=== PATIENT | male | born 1980 | race Caucasian/White ===

== ENCOUNTER 2016-04-16 09:41 | Outpatient (CLI) ==
--- NOTE | 2016-04-16 10:10 | DI ---
EXAM: Two views of the left humerus. History: Left arm muscle strain. Findings: No acute fracture or dislocation. No abnormal calcifications or radiopaque foreign kemal s. Joint spaces are preserved. Impression: No acute osseous abnormality.
--- NOTE | 2016-04-16 10:11 | DI ---
EXAM: Three views of the left elbow. History: Left arm muscle strain and trauma. Findings: No acute fracture or dislocation. No abnormal calcifications or radiopaque foreign kemal s. Joint spaces are preserved. Impression: No acute osseous abnormality.
== END 2016-04-16 09:42 | disposition home or self-care (01) ==
LOC: RAD 09:41
PROVIDERS: ATTEND Nurse Practitioner Family
DX: S46.912A Strain of unspecified muscle, fascia and tendon at shoulder and upper arm level, left arm, initial encounter (principal); M62.838 Other muscle spasm

== ENCOUNTER 2016-11-30 20:04 | Emergency (ER) ==
[2016-11-30] MEDS ORDERED: EYE-STREAM OP STA (20:09)
[2016-11-30] MEDS ORDERED: FLUORETS OP STA (20:09)
[2016-11-30] MEDS ORDERED: TETRACAINE 0.5% UNIT-DOSE OP STA (20:09)
[2016-11-30 20:10] VITALS: BP 136/90; TEMP 98.7; BMI 32.8
[2016-11-30] MEDS ORDERED: GENTAK OPTH SOL OP STA (20:10)
--- NOTE | 2016-11-30 20:32 | ED.PDOC ---
General ED Provider: Dr. TYSHAWN SYLVESTER Chief Complaint: Eye Problem Stated Complaint: Pateint was getting something out of a tree the felt like something got into the right eye. He was unable to get it out then came to the ER. Time Seen by Physician: 20:00 Mode of Arrival: Walk-In Information Source: Patient Exam Limitations: No limitations [facility] and Triage Documentation Reviewed and Agree: Yes EENT Complaint Exam - Eye Complaint/Exam Onset/Duration: 1 hour Symptoms Are: Still present Timing: Constant Initial Severity: Severe Current Severity: Severe Location: Right Character: Reports: Foreign body sensation Aggravating: Reports: Blinking Alleviating: Reports: None Associated Signs and Symptoms: Reports: Photophobia. Denies: Vision impairment Eye Surgical History: Reports: None Penetrating Injury Risk Factors: None Globe Rupture Risk Factors: None Acute Glaucoma Risk Factors: None Optic Artery Occlusion Risk Factors: None Visual Field: Normal Extraocular Movement: Normal Orbit Findings: Normal Globe Findings: Intact Lid Findings: Foreign Body Conjunctival Findings: Red Corneal Findings: Clear Fluorescein Uptake: No Eye Picture: 1 - 1mm black smooth surfice foreign body Differential Diagnoses: Conjunctivitis, Foreign Body Review of Systems - Review Of Systems Constitutional: Reports: No symptoms Eyes: Reports: Foreign body sensation. Denies: Vision change Ears, Nose, Mouth, Throat: Reports: No symptoms Respiratory: Reports: No symptoms Cardiac: Reports: No symptoms GI: Reports: No symptoms : Reports: No symptoms Musculoskeletal: Reports: No symptoms Skin: Reports: No symptoms Neurological: Reports: Anxiety Endocrine: Reports: No symptoms Hematologic/Lymphatic: Reports: No symptoms All Other Systems: Reviewed and Negative Past Medical History - Past Medical History Previously Healthy: Yes Endocrine: Reports: None Cardiovascular: Reports: None Respiratory: Reports: None Hematological: Reports: None Gastrointestinal: Reports: None Genitourinary: Reports: None Neuro/Psych: Reports: Seizure Musculoskeletal: Reports: None Cancer: Reports: None - Surgical History General Surgical History: Reports: None - Family History Family History: Reports: None - Social History Smoking Status: Never smoker Hx Substance Use: No Alcohol Screening: None - Immunizations Tetanus Shot up to Date: Yes Physical Exam - Physical Exam Appearance: Well-appearing, No pain distress, Well-nourished Eyes: Conjunctiva inflammed ENT: Ears normal, Nose normal, Oropharynx normal Neck: Supple Respiratory: Airway patent, Breath sounds clear, Breath sounds equal, Respirations nonlabored Cardiovascular: RRR, Pulses normal, No rub, No murmur GI/: Soft, Nontender, No masses, Bowel sounds normal, No Organomegaly Musculoskeletal: Normal strength, ROM intact, No edema, No calf tenderness Skin: Warm, Dry, Normal color Neurological: Sensation intact, Motor intact, Alert, Oriented Psychiatric: Anxious Critical Care Note - Critical Care Note Total Time (mins): 0 Course - Course Orders, Labs, Meds: Orders Category Date Time Status Balanced Salt Solution [Eye-Stream] MEDS 11/30/16 20:09 Discontinued 1 bottle OP ONCE STA Fluorescein Sodium [Fluorets] MEDS 11/30/16 20:09 Discontinued 1 strip OP ONCE STA Gentamicin Sulfate Opth [Gentak Opth Kristina] MEDS 11/30/16 20:10 Discontinued 1 drop OP ONCE STA Tetracaine HCl/Pf [Tetracaine 0.5% Unit-Dose] MEDS 11/30/16 20:09 Discontinued 2 drop OP ONCE STA Medications Discontinued Medications Generic Name Dose Route Start Last Admin Trade Name Freq PRN Reason Stop Dose Admin Eye Irrigation Solution 1 bottle 11/30/16 20:09 11/30/16 20:15 Eye-Stream OP 11/30/16 20:10 1 bottle ONCE STA Administration Fluorescein Sodium 1 strip 11/30/16 20:09 11/30/16 20:19 Fluorets OP 11/30/16 20:10 1 strip ONCE STA Administration Gentamicin Sulfate 1 drop 11/30/16 20:10 11/30/16 20:20 Gentak Opth Kristina OP 11/30/16 20:11 1 drop ONCE STA Administration Tetracaine HCl 2 drop 11/30/16 20:09 11/30/16 20:14 Tetracaine 0.5% Unit-Dose OP 11/30/16 20:10 2 drop ONCE STA Administration Vital Signs: Temp Pulse Resp BP Pulse Ox 11/30/16 20:05 98.7 F 72 20 136/90 97 Departure - Departure Time of Disposition: 20:37 Disposition: HOME SELF-CARE Discharge Problem: Foreign body in eyeball, right Instructions: Eye Foreign Body (ED) Condition: Fair Pt referred to PMD for follow-up: Yes Additional Instructions: Use eye drops three times a day on the right eye for 10 days Always use eye protection while working on bushes. Allergies/Adverse Reactions: Allergies No Known Allergies Allergy (Verified 11/30/16 20:09) Home Medications: Ambulatory Orders Multivitamin 1 cap PO DAILY 11/30/16 Disposition Discussed With: Patient, Family
== END 2016-11-30 20:47 | disposition home or self-care (01) ==
LOC: ED 20:04
DX: T15.91XA Foreign body on external eye, part unspecified, right eye, initial encounter (principal)
CPT/HCPCS: 99283

== ENCOUNTER 2017-03-27 12:34 | Outpatient (CLI) ==
[2017-03-27 13:01] LABS: FLU INTERNAL QC INTERNAL QC VALID; MOLECULAR FLU A NEGATIVE BY NAAT (NEGATIVE); MOLECULAR FLU B NEGATIVE BY NAAT (NEGATIVE)
== END 2017-03-27 12:35 | disposition home or self-care (01) ==
LOC: LAB 12:34
PROVIDERS: ATTEND Nurse Practitioner Family
DX: R68.89 Other general symptoms and signs (principal)
CPT/HCPCS: 87502

== ENCOUNTER 2017-04-18 11:16 | Outpatient (CLI) | END 2017-04-18 11:17 | disposition home or self-care (01) | LOC: LAB 11:16 | PROVIDERS: ATTEND Nurse Practitioner Family | DX: R53.83 Other fatigue (principal) | CPT/HCPCS: 36415; 80053; 80061; 82306; 84402; 84439; 84443; 85025 ==

== ENCOUNTER 2017-04-23 15:41 | Outpatient (CLI) | END 2017-04-23 15:42 | disposition home or self-care (01) | LOC: LAB 15:41 | PROVIDERS: ATTEND Nurse Practitioner Family | DX: R73.09 Other abnormal glucose (principal); E55.9 Vitamin D deficiency, unspecified; E78.5 Hyperlipidemia, unspecified | CPT/HCPCS: 36415; 83037 ==

== ENCOUNTER 2017-07-18 10:53 | Outpatient (CLI) | END 2017-07-18 10:54 | disposition home or self-care (01) | LOC: LAB 10:53 → RHC-LAB 10:54 | PROVIDERS: ATTEND Nurse Practitioner Family | DX: R73.09 Other abnormal glucose (principal); E78.5 Hyperlipidemia, unspecified; E55.9 Vitamin D deficiency, unspecified | CPT/HCPCS: 36415; 80053; 80061; 82306; 83037; 85025 ==

== ENCOUNTER 2017-07-30 08:22 | Outpatient (CLI) ==
--- NOTE | 2017-07-30 09:03 | US ---
EXAM: Right upper quadrant abdominal ultrasound. History: Generalized abdominal pain. Technique: Multiple sonographic images through the abdomen were obtained. Color duplex Doppler was used to interrogate vascular flow. Findings: The pancreas was not well visualized due to obscuration by bowel gas. No abdominal ascites. The frank er is enlarged measuring 17 cm and the liver is diffusely echogenic. No focal liver lesions identifi ed sonographically. There is antegrade flow within the main portal vein. Limited visualization of t he right kidney demonstrates no evidence for hydronephrosis. No shadowing gallstones. Gallbladder w all is not thickened. Common bile duct measures 0.4 cm in caliber. Impression: 1. No acute sonographic findings. 2. Enlarged fatty liver
== END 2017-07-30 08:23 | disposition home or self-care (01) ==
LOC: RAD 08:22
PROVIDERS: ATTEND Nurse Practitioner Family
DX: R10.84 Generalized abdominal pain (principal); E78.5 Hyperlipidemia, unspecified; R74.8 Abnormal levels of other serum enzymes

== ENCOUNTER 2017-08-04 09:06 | Outpatient (CLI) ==
--- NOTE | 2017-08-04 11:34 | NM ---
EXAM: Hepatobiliary imaging HISTORY: Generalized abdominal pain COMPARISON: Right upper quadrant ultrasound on 07/30/2017 showed enlarged fatty liver. TECHNIQUE: Patient was injected 4.7 mCi of technetium 99m mebrofenin intravenously. Multiple anterio r scintigraphic images of the right upper quadrant region of the abdomen were obtained up to 1 hour i nterval. Patient was infused 2 mcg of cholecystokinin intravenously and gallbladder ejection fractio n was calculated. FINDINGS: There is normal visualization of liver, gallbladder, bile duct and small bowel loops. Gall bladder ejection fraction is 94%. IMPRESSION: Normal study
== END 2017-08-04 09:07 | disposition home or self-care (01) ==
LOC: RAD 09:06
PROVIDERS: ATTEND Nurse Practitioner Family
DX: R10.84 Generalized abdominal pain (principal); E78.5 Hyperlipidemia, unspecified; R74.8 Abnormal levels of other serum enzymes

== ENCOUNTER 2017-08-06 09:10 | Outpatient (CLI) ==
--- NOTE | 2017-08-06 10:41 | DI ---
EXAM: CHEST FRONTAL AND LATERAL VIEWS HISTORY: Cough. COMPARISON: 12/27/2013 FINDINGS: Heart size and mediastinal contour remain within normal limits. No acute infiltrates. Normal vascularity with no pleural fluid or pneumothorax. The bony thorax has no acute finding. IMPRESSION: No acute process.
== END 2017-08-06 09:11 | disposition home or self-care (01) ==
LOC: LAB 09:10
PROVIDERS: ATTEND Nurse Practitioner Family
DX: R16.0 Hepatomegaly, not elsewhere classified (principal); E78.5 Hyperlipidemia, unspecified; R10.84 Generalized abdominal pain; R05 Cough
CPT/HCPCS: 36415; 80074; 93005; 93010

== ENCOUNTER 2017-08-08 12:00 | Outpatient (CLI) | END 2017-08-08 12:01 | disposition home or self-care (01) | LOC: FCC-LAB 12:00 | PROVIDERS: ATTEND Nurse Practitioner Family | DX: R00.1 Bradycardia, unspecified (principal); R10.84 Generalized abdominal pain; R74.8 Abnormal levels of other serum enzymes; E78.5 Hyperlipidemia, unspecified; E55.9 Vitamin D deficiency, unspecified; R79.89 Other specified abnormal findings of blood chemistry | CPT/HCPCS: 36415; 82306; 84402 ==

== ENCOUNTER 2017-08-09 21:40 | Emergency (ER) ==
[2017-08-09 21:43] VITALS: BP 145/87; TEMP 98.3; BMI 35.5
--- NOTE | 2017-08-09 22:01 | ED.PDOC ---
General ED Provider: Dr. EILEEN BRYANT Chief Complaint: Chest Pain Stated Complaint: Came for the left side chest pain, radiating to left arm, pain is better now.. also having some black stools Time Seen by Physician: 21:59 Mode of Arrival: Walk-In Information Source: Patient Primary Care Provider: JAMMIE LUGO Nursing and Triage Documentation Reviewed and Agree: Yes Reviewed sepsis parameters & appropriate labs ordered?: No System Inflammatory Response Syndrome: Not Applicable Sepsis Protocol: For patient's 13 years and over: Temp is 96.8 and below OR 101 and greater Pulse >90 BPM Resp >20/minute Acutely Altered Mental Status Are patient's symptoms suggestive of a new infection, such as: -Pneumonia -Skin, Soft Tissue -Endocarditis -UTI -Bone, Joint Infection -Implantable Device -Acute Abdominal Infection -Wound Infection -Meningitis -Blood Stream Catheter Infection -Unknown Cardiovascular Complaint Exam - Chest Pain Complaint/Exam Onset: Sudden Symptoms Are: Resolved Timing: Constant Initial Severity: Moderate Current Severity: None Location: Reports: Left lateral Pain Radiates: Reports: Left arm Character: Reports: Aching, Tightness Aggravating: Reports: None Alleviating: Reports: None Related Surgical History: Reports: None History of Healthcare-Acquired Pneumonia: Reports: No AMI/ACS Risk Factors: Reports: None TAD Risk Factors: Reports: None Pulmonary Embolism Risk Factors: Reports: None Prior Care for this Complaint: No Recent Stress Test: No Recent Echo/LV Function: No JVD Present: No Subcutaneous Emphysema Present: No Diminshed Breath Sounds: No Reproducible Chest Wall Pain: No Bilateral Pulses Present: No Unequal Pulses Noted: No If Risk Factors for AMI/ACS Consider: EKG, Cardiac Enzymes, Serial Studies Differential Diagnoses: ACS, Chest Wall Pain Review of Systems - Review Of Systems Constitutional: Reports: No symptoms Eyes: Reports: No symptoms Ears, Nose, Mouth, Throat: Reports: No symptoms Respiratory: Reports: No symptoms Cardiac: Reports: Chest pain GI: Reports: No symptoms : Reports: No symptoms Musculoskeletal: Reports: No symptoms Skin: Reports: No symptoms Neurological: Reports: No symptoms Endocrine: Reports: No symptoms Hematologic/Lymphatic: Reports: No symptoms All Other Systems: Reviewed and Negative Past Medical History - Past Medical History Previously Healthy: Yes Endocrine: Reports: None Cardiovascular: Reports: None Respiratory: Reports: None Hematological: Reports: None Gastrointestinal: Reports: GERD Genitourinary: Reports: None Neuro/Psych: Reports: Seizure Musculoskeletal: Reports: None Cancer: Reports: None - Surgical History General Surgical History: Reports: None - Family History Family History: Reports: None - Social History Smoking Status: Never smoker Hx Substance Use: No Alcohol Screening: Occasionally - Immunizations Tetanus Shot up to Date: Yes Physical Exam - Physical Exam Appearance: Well-appearing, No pain distress, Well-nourished Eyes: VINAY, EOMI, Conjunctiva clear ENT: Ears normal, Nose normal, Oropharynx normal Respiratory: Airway patent, Breath sounds clear, Breath sounds equal, Respirations nonlabored Cardiovascular: RRR, Pulses normal, No rub, No murmur GI/: Soft, Nontender, No masses, Bowel sounds normal, No Organomegaly Musculoskeletal: Normal strength, ROM intact, No edema, No calf tenderness Skin: Warm, Dry, Normal color Neurological: Sensation intact, Motor intact, Reflexes intact, Cranial nerves intact, Alert, Oriented Psychiatric: Affect appropriate, Mood appropriate Interpretation - Radiology Interpretation Radiology Interpretation By: ED Physician Radiology Results: Negative Exam Interpreted: CXR - EKG Interpretation Time of EKG #1: 22:00 Rate: Zbigniew Rhythm: Sinus Re-Evaluation - Re-Evaluation Time of Re-Evaluation: 23:26 Status: Improved Critical Care Note - Critical Care Note Total Time (mins): 30 Course - Course Hematology/Chemistry: 08/09/17 22:12 08/09/17 22:12 Orders, Labs, Meds: Lab Review 08/09/17 08/09/17 22:12 22:12 WBC 8.77 RBC 3.92 L Hgb 12.8 L Hct 36.3 L MCV 92.6 MCH 32.7 H MCHC 35.3 RDW Coeff of Chitra 12.0 Plt Count 219 Immature Gran % (Auto) 0.3 Neut % (Auto) 38.1 Lymph % (Auto) 47.0 [place] % (Auto) 10.5 H Eos % (Auto) 3.8 Baso % (Auto) 0.3 Immature Gran # (Auto) 0.0 Neut # (Auto) 3.3 Lymph # (Auto) 4.1 H [place] # (Auto) 0.9 Eos # (Auto) 0.3 Baso # (Auto) 0.0 Sodium 140 Potassium 3.8 Chloride 105 Carbon Dioxide 23 Anion Gap 15.8 BUN 14 Creatinine 1.19 H Estimated GFR (MDRD) 70.00 BUN/Creatinine Ratio 11.76 Glucose 107 H Calcium 9.4 Total Bilirubin 0.4 AST 38 H ALT 70 Alkaline Phosphatase 45 L Total Creatine Kinase 431 CK-MB (CK-2) 2.5 CK-MB (CK-2) % 0.25177 Troponin I < 0.0100 Total Protein 7.3 Albumin 3.9 Globulin 3.4 Albumin/Globulin Ratio 1.15 Orders Category Date Time Status EKG-(ED ONLY) Stat CARDIO 08/09/17 21:58 Completed CBC W/ AUTO DIFF Stat LAB 08/09/17 22:12 Completed COMPREHENSIVE METABOLIC PANEL Stat LAB 08/09/17 22:12 Completed CREATINE KINASE Stat LAB 08/09/17 22:12 Completed TROPONIN I Stat LAB 08/09/17 22:12 Completed Pantoprazole Sodium [Protonix] MEDS 08/09/17 23:21 Stat 40 mg PO ONCE STA Sucralfate Susp [Carafate] MEDS 08/09/17 23:21 Stat 1 gm PO ONCE STA CHEST, 2 VIEWS PA & LAT Stat RADS 08/09/17 21:58 Taken Vital Signs: Temp Pulse Resp BP Pulse Ox 08/09/17 21:40 98.3 F 61 20 145/87 H 95 NATI Risk Score Age >/= 65: No >/= 3 CAD Risk Factors: No Known CAD (Stenosis >/= 50%): No ASA Use in Past 7 Days: No Severe Angina (>/= 2 episodes in 24 hours): No EKG ST Changes >/= 0.5mm: No Postive Cardiac Marker: No NATI Total Score: 0 NATI Risk Score: Risk Score Odds of by 30D 0 0.1 (0.1-0.2) 1 0.3 (0.2-0.3) 2 0.4 (0.3-0.5) 3 0.7 (0.6-0.9) 4 1.2 (1.0-1.5) 5 2.2 (1.9-2.6) 6 3.0 (2.5-3.6) 7 4.8 (3.8-6.1) Departure - Departure Time of Disposition: 23:31 Disposition: HOME SELF-CARE Discharge Problem: Chest pain, PUD (peptic ulcer disease) Instructions: Chest Pain (ED) Condition: Stable Pt referred to PMD for follow-up: Yes IPMP verified?: No Additional Instructions: Dont want to be admitted, has stress test scheduled by Jammie as out patient. No spicy food, no fried food. f/u in [facility] 3-4 days Prescriptions: Ranitidine HCl [Zantac] 150 mg PO BIDAC #20 tablet Sucralfate Susp [Carafate] 1 gm PO ACHS #1 bottle Allergies/Adverse Reactions: Allergies No Known Allergies Allergy (Verified 08/09/17 21:44) Home Medications: Ambulatory Orders Ranitidine HCl [Zantac] 150 mg PO BIDAC #20 tablet 08/09/17 Sucralfate Susp [Carafate] 1 gm PO ACHS #1 bottle 08/09/17 Disposition Discussed With: Patient
[2017-08-09] MEDS ORDERED: PROTONIX PO STA (23:21)
[2017-08-09] MEDS ORDERED: CARAFATE PO STA (23:21)
--- NOTE | 2017-08-10 06:28 | DI ---
EXAM: PA and lateral views of the chest HISTORY: Chest. COMPARISON: Chest x-ray 08/06/2017 FINDINGS: The cardiomediastinal silhouette is normal. There is no pneumothorax or pleural effusion. There is no consolidation, nodule or mass. The osseous structures are unremarkable. IMPRESSION: No acute cardiopulmonary process
== END 2017-08-09 23:50 | disposition home or self-care (01) ==
LOC: ED 21:40
DX: R07.9 Chest pain, unspecified (principal); K27.9 Peptic ulcer, site unspecified, unspecified as acute or chronic, without hemorrhage or perforation
CPT/HCPCS: 36415; 80053; 82550; 82553; 84484; 85025; 93005; 93010; 99283

== ENCOUNTER 2017-08-28 06:42 | Outpatient (CLI) ==
--- NOTE | 2017-09-01 07:50 | STRESSECHO ---
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[employer] Reason for Exam: SINUS BRADYCARDIA, HX MURMUR Smoking History: NON SMOKER Height: 70" Weight: 255 LBS Current Medications: SIMVASTATIN, SUCRALFATE, RANITIDINE Resting EKG: SINUS RHYTHM/ BRADYCARDIA Target Heart Rate: 157/185 S-T SEGMENT STAGE MPH/GRADE HEART RATE BPM BLOOD PRESSURE MMHG RHYTHM +/- ELEVATION DEPRESSION SYMPTOMS,COMMENTS AT REST 55 112/86 SR X NONE 1 1.7/10% 112 136/66 SR X NONE 2 2.5/12% 136 140/66 SR X NONE 3 3.4/14% 4 4.2/16% 5 5.0/18% Immediately After 155 160/60 SR X SHORT OF BREATH Minutes Post Exercise 5:00 80 132/78 SR X NO SYMPTOMS Minutes Post Exercise DURATION OF EXERCISE: 7:01 MAXIMUM HEART RATE REACHED: 155 REASON FOR TERMINATION: SHORT OF BREATH 99% OXYGEN SATURATION WITH EXERCISE ON ROOM AIR METS: 10.1 INTERPRETATION: 1. NO EVIDENCE OF ISCHEMIA BY ST-T WAVE 2. NO CHEST PAIN OR CHEST DISCOMFORT 3. BLOOD PRESSURE RESPONSE: NORMAL 4. NO ARRHYTHMIAS NORMAL LEFT VENTRICULAR CONTRACTILITY--RESTING AND POST EXERCISE MTDD
--- NOTE | 2017-09-01 07:54 | ECHOSTRESS ---
Date of Exam: 08/28/17 Ordering Physician: JAMMIE LUGO APRN Reason for Echo: SINUS BRADYCARDIA, MURMUR, STRESS TEST--NO ISCHEMIA M-Mode Normal Adult Results LV Dimensions Normal Adult Results AoV Opening excursions >1.6 LVEDD-base- 3.5-5.8 Ao root dimensions 2.0-3.7 LVESD-base- 3.1-4.6 L. Atrium dimensions 1.9-3.8 Post. Wall thickness 0.8-1.1 IV septum (thickness) 0.7-1.2 Post. Wall excursion 0.72-1.3 Septal motion Systolic motion R. Ventricular cavity 1.5-2.0 LVEF 60% Paradoxical septal wall motion 2-D: NORMAL LEFT VENTRICULAR CONTRACTILITY--RESTING AND POST EXERCISE M-MODE: MV: AV: TV: PV: CHAMBER SIZE: WALL MOTION: NORMAL LEFT VENTRICULAR CONTRACTILITY--RESTING AND POST EXERCISE PERICARDIUM: INTERPRETATION: 1. NORMAL LEFT VENTRICULAR CONTRACTILITY--RESTING AND POST EXERCISE MTDD
== END 2017-08-28 06:43 | disposition home or self-care (01) ==
LOC: CAR 06:42
PROVIDERS: ATTEND Nurse Practitioner Family
DX: R00.1 Bradycardia, unspecified (principal)

== ENCOUNTER 2018-07-10 01:03 | Emergency (ER) ==
[2018-07-10 01:11] VITALS: TEMP 97.7; BMI 35.9
[2018-07-10 01:14] VITALS: BP 146/94
--- NOTE | 2018-07-10 01:18 | ED.PDOC ---
General ED Provider: Dr. UCHE STACY-ER Chief Complaint: Tooth Problem Stated Complaint: my tooth hurts Time Seen by Physician: 01:05 Mode of Arrival: Walk-In Information Source: Patient Exam Limitations: No limitations Primary Care Provider: DANIEL CASTREJON Nursing and Triage Documentation Reviewed and Agree: Yes Does patient meet sepsis criteria?: No System Inflammatory Response Syndrome: Not Applicable Sepsis Protocol: For patient's 13 years and over: Temp is 96.8 and below OR 101 and greater Pulse >90 BPM Resp >20/minute Acutely Altered Mental Status Are patient's symptoms suggestive of a new infection, such as: -Pneumonia -Skin, Soft Tissue -Endocarditis -UTI -Bone, Joint Infection -Implantable Device -Acute Abdominal Infection -Wound Infection -Meningitis -Blood Stream Catheter Infection -Unknown EENT Complaint Exam - Dental/Oral Complaint/Exam Mechanism of Injury: No known trauma Onset/Duration: 24 hrs Symptoms Are: Still present Initial Severity: Mild Current Severity: Mild Location: right lower premolar Character: Reports: Dull, Aching, Throbbing Aggravating: Reports: None Alleviating: Reports: None Associated Signs and Symptoms: Denies: Swelling, Discharge, Fever, Foul odor, Foul taste in mouth Related History: Reports: Similar episode Cardiac Risk Factors: Reports: None Dental/Oral Surgical History: Reports: None Tooth Findings: Present: Percussion tenderness, Gross decay Cervical Lymphadenopathy Present: No Facial Swelling Present: No Bleeding Present: No Septal Hematoma: No Foreign Body Present: No Dysphagia Present: No Drooling Present: No Asymmetrical Tonsillar Swelling Present: No Uvula Midline: Yes Isabelle-tonsillar Fluctuence: No Trismus Present: No Differential Diagnoses: Dental Caries Review of Systems - Review Of Systems Constitutional: Reports: No symptoms Eyes: Reports: No symptoms Ears, Nose, Mouth, Throat: Reports: Mouth pain Respiratory: Reports: No symptoms Cardiac: Reports: No symptoms GI: Reports: No symptoms : Reports: No symptoms Musculoskeletal: Reports: No symptoms Skin: Reports: No symptoms Neurological: Reports: No symptoms Endocrine: Reports: No symptoms Hematologic/Lymphatic: Reports: No symptoms All Other Systems: Reviewed and Negative Past Medical History - Past Medical History Previously Healthy: Yes Endocrine: Reports: None Cardiovascular: Reports: None Respiratory: Reports: None Hematological: Reports: None Gastrointestinal: Reports: GERD Genitourinary: Reports: None Neuro/Psych: Reports: Seizure Musculoskeletal: Reports: None Cancer: Reports: None - Surgical History General Surgical History: Reports: None - Family History Family History: Reports: None - Social History Smoking Status: Never smoker Hx Substance Use: No Alcohol Screening: None - Immunizations Tetanus Shot up to Date: Yes Physical Exam - Physical Exam Appearance: Well-appearing Pain Distress: Mild Eyes: VINAY, EOMI, Conjunctiva clear ENT: Ears normal, Nose normal, Oropharynx normal Neck: Supple Respiratory: Airway patent, Breath sounds clear, Breath sounds equal, Respirations nonlabored Cardiovascular: RRR GI/: Soft Musculoskeletal: Normal strength Skin: Warm, Dry, Normal color Neurological: Sensation intact Psychiatric: Affect appropriate, Mood appropriate Critical Care Note - Critical Care Note Total Time (mins): 0 Course - Course Vital Signs: Temp Pulse Resp BP Pulse Ox 07/10/18 01:03 97.7 F 63 18 146/94 H 98 Departure - Departure Time of Disposition: 01:17 Disposition: HOME SELF-CARE Discharge Problem: Toothache Instructions: Dental Abscess (ED) Condition: Good Pt referred to PMD for follow-up: Yes IPMP verified?: No Additional Instructions: augmentin 875mg bid x 7 days---norco 7.5mg q 4hrs prn pain #10===f/u dentist [facility] Allergies/Adverse Reactions: Allergies No Known Allergies Allergy (Verified 07/10/18 01:11) Home Medications: Ambulatory Orders Ranitidine HCl [Zantac] 150 mg PO BIDAC #20 tablet 08/09/17 Sucralfate Susp [Carafate] 1 gm PO ACHS #1 bottle 08/09/17 Simvastatin [Zocor] 10 mg PO DAILY #30 01/01/18 Fluticasone Propionate [Flonase Allergy Relief] 2 spray NS BID PRN 07/10/18 Disposition Discussed With: Patient
== END 2018-07-10 01:24 | disposition home or self-care (01) ==
LOC: ED 01:03
DX: K08.89 Other specified disorders of teeth and supporting structures (principal); K02.7 Dental root caries
CPT/HCPCS: 99282

== ENCOUNTER 2018-08-26 13:57 | Emergency (ER) ==
[2018-08-26 14:02] VITALS: BP 152/77; TEMP 98.1; BMI 34.4
[2018-08-26] MEDS ORDERED: LIDOCAINE HCL 1% SDV SUBCUT STA (14:12)
--- NOTE | 2018-08-26 14:21 | ED.PDOC ---
General ED Provider: Dr. BLANCA REA Chief Complaint: Hand Laceration Stated Complaint: laceration of the right hand with a sharp metal. Time Seen by Physician: 14:00 (seen with rafael at all times. SEE PHOTOS) Mode of Arrival: Walk-In Information Source: Patient Exam Limitations: No limitations Primary Care Provider: DANIEL CASTREJON Nursing and Triage Documentation Reviewed and Agree: Yes Does patient meet sepsis criteria?: No (TETNUS PER PT IS U.T.D.) System Inflammatory Response Syndrome: Not Applicable Sepsis Protocol: For patient's 13 years and over: Temp is 96.8 and below OR 101 and greater Pulse >90 BPM Resp >20/minute Acutely Altered Mental Status Are patient's symptoms suggestive of a new infection, such as: -Pneumonia -Skin, Soft Tissue -Endocarditis -UTI -Bone, Joint Infection -Implantable Device -Acute Abdominal Infection -Wound Infection -Meningitis -Blood Stream Catheter Infection -Unknown Skin Complaint Exam - Lac/Torso/Upper Ext. Complaint/Exam Location of Injury: Right (HAND ) Mechanism of Injury: Laceration Onset/Duration: 1 HR AGO SEE PHOTOS Symptoms Are: Still present Initial Severity: Mild Current Severity: Mild Aggravating: None Alleviating: None Associated Signs and Symptoms: Denies: Fever, Chills, Erythema, Numbness, Tingling Related History: Denies: Anticoagulant use, Occupational injury Differential Diagnoses: Laceration Review of Systems - Review Of Systems Constitutional: Reports: No symptoms Eyes: Reports: No symptoms Ears, Nose, Mouth, Throat: Reports: No symptoms Respiratory: Reports: No symptoms Cardiac: Reports: No symptoms GI: Reports: No symptoms : Reports: No symptoms Musculoskeletal: Reports: No symptoms Skin: Reports: Other (LACERATION OF THE HAND ) Neurological: Reports: No symptoms Endocrine: Reports: No symptoms Hematologic/Lymphatic: Reports: No symptoms All Other Systems: Reviewed and Negative Past Medical History - Past Medical History Previously Healthy: Yes Endocrine: Reports: None Cardiovascular: Reports: None Respiratory: Reports: None Hematological: Reports: None Gastrointestinal: Reports: GERD Genitourinary: Reports: None Neuro/Psych: Reports: Seizure Musculoskeletal: Reports: None Cancer: Reports: None - Surgical History General Surgical History: Reports: None - Family History Family History: Reports: None - Social History Smoking Status: Never smoker Hx Substance Use: No Alcohol Screening: None - Immunizations Tetanus Shot up to Date: Yes (PATIENT IS IN HEALTHCARE) Physical Exam - Physical Exam Appearance: Well-appearing, No pain distress, Well-nourished Eyes: VINAY, EOMI, Conjunctiva clear ENT: Ears normal, Nose normal, Oropharynx normal Respiratory: Airway patent, Breath sounds clear, Breath sounds equal, Respirations nonlabored Cardiovascular: RRR, Pulses normal, No rub, No murmur GI/: Soft, Nontender, No masses, Bowel sounds normal, No Organomegaly Musculoskeletal: Normal strength, ROM intact, No edema, No calf tenderness Skin: Warm, Dry Neurological: Sensation intact, Motor intact, Reflexes intact, Cranial nerves intact, Alert, Oriented Psychiatric: Affect appropriate, Mood appropriate Procedures - Laceration/Wound Repair No standard instances Wound Description: Linear Wound Length (cm): 1.7CM Wound Width: 2MM Wound Depth: 2MM Wound Explored: Clean Wound Irrigated: Yes Wound Prep: Saline, Hibiclens Anesthesia: Lidocaine (PLAIN 1 CC ) Wound Debrided: Minimal Undermining: Minimal Wound Margins: Vermilion border aligned Wound Repaired With: Sutures Suture Size and Type: 3, PROLENE Number of Sutures: 6 Number of [place] Resorts: 0 Deep Layer Suture Size and Type: NO Sterile Dressing Applied?: Yes Splint Applied?: No Sling Applied?: No Progress: SEE THE PHOTOS. R.O.M OF THE HAND W.N.Odilon Critical Care Note - Critical Care Note Total Time (mins): 0 Course - Course Orders, Labs, Meds: Orders Category Date Time Status Lidocaine HCl/Pf [Lidocaine HCl 1% Sdv] MEDS 08/26/18 14:12 Stat 5 ml SUBCUT ONCE STA Medications Discontinued Medications Generic Name Dose Route Start Last Admin Trade Name Freq PRN Reason Stop Dose Admin Lidocaine HCl 5 ml 08/26/18 14:12 Lidocaine Hcl 1% Sdv SUBCUT 08/26/18 14:13 ONCE STA Vital Signs: Temp Pulse Resp BP Pulse Ox 08/26/18 13:58 98.1 F 63 16 152/77 H 98 Departure - Departure Time of Disposition: 14:22 (STAFF PRESENT AT ALL TIMES PHOTOS ATTACHED. PT SAID THAT HIS TETNIS WAS U.T.D. NO F/B NOTED. WOUND EXTENSIVELY CLEANSED AND REPAIRED UNDER ABSOLUTE STERILE CONDITION) Disposition: HOME SELF-CARE Discharge Problem: Laceration of hand Hand laceration Qualifiers: Encounter type: initial encounter Foreign body presence: without foreign body Laterality: right Qualified Code(s): S61.411A - Laceration without foreign body of right hand, initial encounter Instructions: Laceration (ED), Care For Your Stitches (DC), Care For Your Stitches (ED) Condition: Good Pt referred to PMD for follow-up: Yes IPMP verified?: No Additional Instructions: Please call your Family Physician as soon as possible to schedule a follow-up appointment. Allergies/Adverse Reactions: Allergies No Known Allergies Allergy (Verified 08/26/18 14:05) Home Medications: Ambulatory Orders Ranitidine HCl [Zantac] 150 mg PO BIDAC #20 tablet 08/09/17 Sucralfate Susp [Carafate] 1 gm PO ACHS #1 bottle 08/09/17 Simvastatin [Zocor] 10 mg PO DAILY #30 01/01/18 Fluticasone Propionate [Flonase Allergy Relief] 2 spray NS BID PRN 07/10/18
== END 2018-08-26 14:50 | disposition home or self-care (01) ==
LOC: ED 13:57
DX: S61.411A Laceration without foreign body of right hand, initial encounter (principal); W26.8XXA Contact with other sharp object(s), not elsewhere classified, initial encounter
CPT/HCPCS: 99283

== ENCOUNTER 2018-09-04 18:16 | Emergency (ER) ==
[2018-09-04 18:20] VITALS: BP 126/72; TEMP 101.8; BMI 34.1
--- NOTE | 2018-09-04 20:14 | ED.PDOC ---
General ED Provider: Dr. DARRIN LOERA Chief Complaint: Fever Stated Complaint: 38 y old apparently diabetis but not bringing it up , developed a fever and is not quite sure why.Has a small sutured laceration of r hand healing well. Time Seen by Physician: 18:35 Mode of Arrival: Walk-In Information Source: Patient Exam Limitations: No limitations Primary Care Provider: BEENA SEVILLA Nursing and Triage Documentation Reviewed and Agree: Yes Does patient meet sepsis criteria?: No System Inflammatory Response Syndrome: Not Applicable Sepsis Protocol: For patient's 13 years and over: Temp is 96.8 and below OR 101 and greater Pulse >90 BPM Resp >20/minute Acutely Altered Mental Status Are patient's symptoms suggestive of a new infection, such as: -Pneumonia -Skin, Soft Tissue -Endocarditis -UTI -Bone, Joint Infection -Implantable Device -Acute Abdominal Infection -Wound Infection -Meningitis -Blood Stream Catheter Infection -Unknown Respiratory Complaint Exam - Respiratory Complaint/Exam Onset/Duration: two rosaura low grade fever Symptoms Are: Still present Timing: Constant Initial Severity: Mild Current Severity: Mild Location: Unknown Aggravating: Reports: None Alleviating: Reports: None Associated Signs and Symptoms: Reports: Fever, Chills Related History: Reports: Similar episode Related Surgical History: Reports: None Pulmonary Embolism Risk Factors: None Cardiac Risk Factors: Reports: None Pseudomonas Risk Factors: Reports: None Tuberculosis Risk Factors: Reports: None Status Asthmaticus Risk Factors: Reports: None Home Oxygen Use: No Recent Stress Test: No Recent Echo/LV Function: No Current Antibiotic Use: No Current Asthma Medication Use: No Respiratory Distress: None Inadequate Respiratory Effort: No Dysphagia Present: No Stridor Present: No JVD Present: No Accessory Muscle Use: No Retractions: Not Present Prolonged Respiration: Inspiratory phase Sinus Tenderness: None Grunting Respirations: No Kussmaul Respirations: No Differential Diagnoses: Pneumonia, Bronchitis, Influenza, Lower Resp. Infection Quality Indicators For Pneumonia: Empiric Antibiotic Rx Review of Systems - Review Of Systems Constitutional: Reports: No symptoms Eyes: Reports: No symptoms Ears, Nose, Mouth, Throat: Reports: No symptoms Respiratory: Reports: No symptoms Cardiac: Reports: No symptoms GI: Reports: No symptoms : Reports: No symptoms Musculoskeletal: Reports: No symptoms Skin: Reports: No symptoms Neurological: Reports: No symptoms Endocrine: Reports: No symptoms Hematologic/Lymphatic: Reports: No symptoms All Other Systems: Reviewed and Negative Past Medical History - Past Medical History Previously Healthy: Yes Endocrine: Reports: None Cardiovascular: Reports: None Respiratory: Reports: None Hematological: Reports: None Gastrointestinal: Reports: GERD Genitourinary: Reports: None Neuro/Psych: Reports: Seizure Musculoskeletal: Reports: None Cancer: Reports: None - Surgical History General Surgical History: Reports: None - Family History Family History: Reports: None - Social History Smoking Status: Never smoker Hx Substance Use: No Alcohol Screening: Occasionally - Immunizations Tetanus Shot up to Date: Yes Physical Exam - Physical Exam Appearance: Well-appearing Ill-appearing: None Pain Distress: None Eyes: VINAY, EOMI ENT: Ears normal, Nose normal, Oropharynx normal Neck: Supple Respiratory: Airway patent, Breath sounds clear, Breath sounds equal Cardiovascular: RRR, Pulses normal, No rub, No murmur GI/: Soft, Nontender Musculoskeletal: Normal strength, ROM intact, No edema, No calf tenderness Skin: Warm, Dry, Normal color Neurological: Sensation intact, Motor intact, Reflexes intact, Cranial nerves intact, Alert, Oriented Psychiatric: Affect appropriate Critical Care Note - Critical Care Note Total Time (mins): 0 Course - Course Hematology/Chemistry: 09/04/18 20:35 09/04/18 20:35 Orders, Labs, Meds: Lab Review 09/04/18 09/04/18 09/04/18 20:35 20:35 20:36 WBC 11.66 H RBC 4.22 L Hgb 13.7 L Hct 39.3 L MCV 93.1 MCH 32.5 H MCHC 34.9 RDW Coeff of Chitra 11.9 Plt Count 215 Immature Gran % (Auto) 0.2 Neut % (Auto) 65.1 Lymph % (Auto) 23.1 [place] % (Auto) 10.0 Eos % (Auto) 1.3 Baso % (Auto) 0.3 Immature Gran # (Auto) 0.0 Neut # (Auto) 7.6 H Lymph # (Auto) 2.7 [place] # (Auto) 1.2 Eos # (Auto) 0.2 Baso # (Auto) 0.0 Sodium 138.9 Potassium 3.69 Chloride 104.1 Carbon Dioxide 21.3 L Anion Gap 17.19 BUN 15.6 Creatinine 1.22 H Estimated GFR (MDRD) 67.00 BUN/Creatinine Ratio 12.78 Glucose 97.6 Calcium 9.50 Total Bilirubin 0.52 AST 46.6 ALT 69.3 H Alkaline Phosphatase 60.4 Total Protein 8.42 H Albumin 4.81 Globulin 3.61 Albumin/Globulin Ratio 1.33 Urine Color Urine Clarity Urine pH Ur Specific [place] Urine Protein Urine Glucose (UA) Urine Ketones Urine Blood Urine Nitrite Urine Bilirubin Urine Urobilinogen Ur Leukocyte Esterase Influ A Molecular Assay Negative by naat Influ B Molecular Assay Negative by naat 09/04/18 20:44 WBC RBC Hgb Hct MCV MCH MCHC RDW Coeff of Chitra Plt Count Immature Gran % (Auto) Neut % (Auto) Lymph % (Auto) [place] % (Auto) Eos % (Auto) Baso % (Auto) Immature Gran # (Auto) Neut # (Auto) Lymph # (Auto) [place] # (Auto) Eos # (Auto) Baso # (Auto) Sodium Potassium Chloride Carbon Dioxide Anion Gap BUN Creatinine Estimated GFR (MDRD) BUN/Creatinine Ratio Glucose Calcium Total Bilirubin AST ALT Alkaline Phosphatase Total Protein Albumin Globulin Albumin/Globulin Ratio Urine Color Yellow Urine Clarity Clear Urine pH 5.5 Ur Specific [place] 1.020 Urine Protein Negative Urine Glucose (UA) Negative Urine Ketones Negative Urine Blood Negative Urine Nitrite Negative Urine Bilirubin Negative Urine Urobilinogen 1.0 Ur Leukocyte Esterase Negative Influ A Molecular Assay Influ B Molecular Assay Orders Category Date Time Status CBC W/ AUTO DIFF Stat LAB 09/04/18 20:35 Completed COMPREHENSIVE METABOLIC PANEL Stat LAB 09/04/18 20:35 Completed FLU A/B MOLECULAR Stat LAB 09/04/18 20:36 Completed MOLECULAR GROUP A STREP Stat LAB 09/04/18 20:36 Completed URINALYSIS C & S IF INDICATED Stat LAB 09/04/18 20:44 Completed Acetaminophen [Tylenol] MEDS 09/04/18 20:18 Discontinued 500 mg PO ONCE STA Ceftriaxone Sodium [Rocephin] MEDS 09/04/18 20:56 Discontinued 1 gm IM ONCE STA Lidocaine HCl/Pf [Lidocaine HCl 1% Sdv] MEDS 09/04/18 20:56 Discontinued 2.1 ml IM ONCE STA CHEST, 2 VIEWS PA & LAT Stat RADS 09/04/18 20:17 Completed Medications Discontinued Medications Generic Name Dose Route Start Last Admin Trade Name Freq PRN Reason Stop Dose Admin Acetaminophen 500 mg 09/04/18 20:18 09/04/18 20:24 Tylenol PO 09/04/18 20:19 500 mg ONCE STA Administration Ceftriaxone Sodium 1 gm 09/04/18 20:56 09/04/18 21:08 Rocephin IM 09/04/18 20:57 1 gm ONCE STA Administration Lidocaine HCl 2.1 ml 09/04/18 20:56 09/04/18 21:08 Lidocaine Hcl 1% Sdv IM 09/04/18 20:57 2.1 ml ONCE STA Administration Vital Signs: Temp Pulse Resp BP Pulse Ox 09/04/18 18:17 101.8 F H 101 H 101 H 126/72 96 Departure - Departure Time of Disposition: 22:04 Disposition: HOME SELF-CARE Discharge Problem: Fever Instructions: Dehydration (ED) Condition: Good Pt referred to PMD for follow-up: Yes IPMP verified?: No Additional Instructions: Follow up with your Augmentin 800/125 bid x 10 days. Allergies/Adverse Reactions: Allergies No Known Allergies Allergy (Verified 08/26/18 14:05) Home Medications: Ambulatory Orders Ranitidine HCl [Zantac] 150 mg PO BIDAC #20 tablet 08/09/17 Sucralfate Susp [Carafate] 1 gm PO ACHS #1 bottle 08/09/17 Simvastatin [Zocor] 10 mg PO DAILY #30 01/01/18 Fluticasone Propionate [Flonase Allergy Relief] 2 spray NS BID PRN 07/10/18 Disposition Discussed With: Patient
[2018-09-04] MEDS: TYLENOL PO STA (20:24)
[2018-09-04] MEDS: ROCEPHIN IM STA (21:08)
[2018-09-04] MEDS: LIDOCAINE HCL 1% SDV IM STA (21:08)
--- NOTE | 2018-09-04 21:46 | DI ---
EXAM: Two-view chest HISTORY: Fever COMPARISON: Two-view chest 08/09/2017 FINDINGS: The cardiomediastinal silhouette is normal. The lungs are clear bilaterally. No osseous abnormalities are identified. IMPRESSION: No evidence of active pulmonary disease.
== END 2018-09-04 22:14 | disposition home or self-care (01) ==
LOC: ED 18:16
DX: R50.9 Fever, unspecified (principal); S61.411D Laceration without foreign body of right hand, subsequent encounter; Z98.890 Other specified postprocedural states
CPT/HCPCS: 36415; 80053; 81001; 85025; 87502; 87651; 96372; 99283